=== PATIENT | female | born 1945 | race Two or more races ===

== ENCOUNTER 2018-02-05 18:51 | Inpatient (IN) | payer OTHER ==
[~2018-02-05] VITALS: Ht 157.5 cm; Wt 52.2 kg
[2018-02-05 19:04] VITALS: Ht 157.5 cm; Wt 52.2 kg
[2018-02-05 20:09] LABS: BASOPHIL % 0.1 % (0-2); PLATELET COUNT 224 x10^3mcL (130-400); RED CELL DISTRIBUTION WIDTH 12.6 % (11.5-14.5)
[2018-02-05 20:23] LABS: CALCIUM 8.3 mg/dL (8.5-10.1); CARBON DIOXIDE 18.7 mmol/L (21-32); CHLORIDE SERUM 100 mmol/L (98-107); CREATININE SERUM 0.7 mg/dL (0.6-1.0); GLUCOSE SERUM 103 mg/dL (74-106); POTASSIUM SERUM 3.4 mmol/L (3.5-5.1); SODIUM SERUM 133 mmol/L (136-145)
[2018-02-05 20:26] LABS: ALKALINE PHOSPHATASE 54 U/L (46-116); ALT/SGPT 15 U/L (14-59); AST/SGOT 14 U/L (15-37); BILIRUBIN TOTAL 0.43 mg/dL (0.20-1.00); TOTAL PROTEIN, SERUM 6.5 g/dL (6.4-8.2)
[2018-02-05 20:28] LABS: ALBUMIN 2.8 g/dL (3.4-5.0)
[2018-02-05] MEDS ORDERED: BESIVANCE5 ML OD (22:27)
[2018-02-05] MEDS ORDERED: LOTEMAX5 ML OD (22:27)
[2018-02-05] MEDS ORDERED: PROLENSA3 ML OD (22:28)
[2018-02-05 23:35] VITALS: BP 109/60
[2018-02-06] VITALS (7 sets, daily range): BP systolic 94–121; BP diastolic 46–65
[2018-02-06 02:43] LABS: CHOLESTEROL/HDL RATIO 2.8; MAGNESIUM 1.8 mg/dL (1.8-2.4); PHOSPHOROUS 3.8 mg/dL (2.5-4.9)
[2018-02-06 02:55] LABS: microscopic required? YES; urine erythrocyte TRACE (NEGATIVE)
[2018-02-06 03:17] LABS: AMPHETAMINE QUAL UR NONE DETECTED (See below)
[2018-02-06 03:25] LABS: FREE T4 1.44 ng/dL (0.76-1.46); FREE THYROXINE INDEX 2.4 ug/dL (1.4-4.5); T4(THYROXINE) 6.5 ug/dL (4.7-13.3)
[2018-02-06 04:24] LABS: T3 TOTAL 0.5 ng/mL
[2018-02-06 06:26] LABS: BASOPHIL % 0.4 % (0-2); PLATELET COUNT 199 x10^3mcL (130-400); RED CELL DISTRIBUTION WIDTH 12.7 % (11.5-14.5)
[2018-02-06 06:44] LABS: CALCIUM 7.3 mg/dL (8.5-10.1); CARBON DIOXIDE 22.7 mmol/L (21-32); CHLORIDE SERUM 107 mmol/L (98-107); CREATININE SERUM 0.7 mg/dL (0.6-1.0); GLUCOSE SERUM 101 mg/dL (74-106); POTASSIUM SERUM 3.4 mmol/L (3.5-5.1); SODIUM SERUM 138 mmol/L (136-145)
[2018-02-07 05:25] VITALS: BP 96/69
[2018-02-07 06:54] LABS: BASOPHIL % 0.7 % (0-2); PLATELET COUNT 199 x10^3mcL (130-400); RED CELL DISTRIBUTION WIDTH 12.9 % (11.5-14.5)
[2018-02-07 07:12] LABS: CALCIUM 8.2 mg/dL (8.5-10.1); CARBON DIOXIDE 21.5 mmol/L (21-32); CHLORIDE SERUM 110 mmol/L (98-107); CREATININE SERUM 0.6 mg/dL (0.6-1.0); GLUCOSE SERUM 87 mg/dL (74-106); PHOSPHOROUS 3.4 mg/dL (2.5-4.9); POTASSIUM SERUM 4.1 mmol/L (3.5-5.1); SODIUM SERUM 141 mmol/L (136-145)
[2018-02-07 09:38] VITALS: BP 103/53
[2018-02-07 11:47] VITALS: BP 103/53
[2018-02-07] MEDS ORDERED: LEVAQUIN750 MG PO (11:54)
== END 2018-02-07 15:18 | disposition home or self-care (01) | DRG 689 ==
LOC: ED 18:51 → DU 22:19
PROVIDERS: Internal Medicine; Specialist
DX: N39.0 Urinary tract infection, site not specified (principal); N17.0 Acute kidney failure with tubular necrosis; E43 Unspecified severe protein-calorie malnutrition; G93.41 Metabolic encephalopathy; E87.1 Hypo-osmolality and hyponatremia; M19.042 Primary osteoarthritis, left hand; E86.0 Dehydration; E87.6 Hypokalemia; Z68.22 Body mass index [BMI] 22.0-22.9, adult
CPT/HCPCS: 83880; 84439; J0456; J0696; J1885; J2543; J7030; J7050; J7620; J7626; Q0092